=== PATIENT | male | born 1995 | race Caucasian/White ===

== ENCOUNTER 2019-07-23 20:09 | Emergency (ER) | payer OTHER ==
[~2019-07-23] VITALS: Ht 188 cm; Wt 113.4 kg
--- NOTE | 2019-07-23 20:13 | ED.ADGEN ---
Past History Past Medical History: Bipolar, Hypothyroid Past Surgical History: Tonsillectomy Alcohol Use: None Drug Use: Amphetamine Adult General Chief Complaint Chief Complaint ".. I ve been hurting since saturday.. I even took some MOM.... my doctor sent me in to get a CT.. and I guess it says I have a appendicitis...".. " Really need to take a trip to [place].. 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 Patient reports generalized abdomen pain some localization to Rt. lower quadrant. CT which was ordered by his primary Carrie Cisneros NP-C shows an Appendix that is mildly dilated with adjacent fat stranding. Patient last ate approximately 1400 hrs. No history of trauma. No history of travel. No specific ill contacts. Reports normal stools today. No history bad food intake. Review of Systems Review of Systems Constitutional: Denies fever or chills [] Eyes: Denies change in visual acuity, redness, or eye pain [] HENT: Denies nasal congestion or sore throat [] Respiratory: Denies cough or shortness of breath [] Cardiovascular: No additional information not addressed in HPI [] GI:Complaints of abdominal pain, nausea,. Denies vomiting, bloody stools or diarrhea [] : Denies dysuria or hematuria [] Musculoskeletal: Denies back pain or joint pain [] Integument: Denies rash or skin lesions [] Neurologic: Denies headache, focal weakness or sensory changes [] Endocrine: Denies polyuria or polydipsia [] All other systems were reviewed and found to be within normal limits, except as documented in this note. Family History Family History Non-contributory Current Medications Current Medications Current Medications Medications (Trade) Dose Ordered Sig/Aubrie Start Time Stop Time Status Last Admin Dose Admin Ceftriaxone Sodium 1 gm/ Sodium Chloride 50 ml @ 100 mls/hr 1X ONCE 07/23/19 20:15 07/23/19 20:44 DC 07/23/19 20:55 100 MLS/HR Ceftriaxone Sodium (Rocephin) 1 gm STK-MED ONCE 07/23/19 20:44 07/23/19 20:45 DC Famotidine (Pepcid Vial) 20 mg 1X ONCE 07/23/19 20:45 07/23/19 20:46 DC 07/23/19 20:50 20 MG Lactated Ringer's 1,000 ml @ 1,000 mls/hr Q1H 07/23/19 20:14 07/23/19 21:13 DC 07/23/19 20:48 1,000 MLS/HR Metronidazole 100 ml @ 100 mls/hr 1X ONCE 07/23/19 20:15 07/23/19 21:14 DC 07/23/19 21:16 100 MLS/HR Ondansetron HCl (Zofran) 8 mg 1X ONCE 07/23/19 20:45 07/23/19 20:46 DC 07/23/19 20:53 8 MG Sodium Chloride 50 ml @ As Directed STK-MED ONCE 07/23/19 20:44 07/23/19 20:45 DC See Nursing for home meds Allergies Allergies Allergies Coded Allergies Type Severity Reaction Last Updated Verified No Known Drug Allergies 07/24/16 No Physical Exam Physical Exam Constitutional: Well developed, well nourished, Moderated acute distress, non- toxic appearance. [] HENT: Normocephalic, atraumatic, bilateral external ears normal, oropharynx moist, no oral exudates, nose normal. []Ear studs. Eyes: PERRLA, EOMI, conjunctiva normal, no discharge. Eye glasses. Neck: Normal range of motion, no tenderness, supple, no stridor. [] Cardiovascular:Heart rate regular rhythm, no murmur [] Lungs & Thorax: Bilateral breath sounds equal at apexes on auscultation [] Abdomen: Bowel sounds normal, soft, Rt. lower tenderness, no masses, no pulsatile masses. [] Mild rebound to Rt. lower quadrant. Skin: Warm, dry, no erythema, no rash. [] Back: No tenderness, no CVA tenderness. [] Extremities: No tenderness, no cyanosis, no clubbing, ROM intact, no edema. []Mild psoas on Rt. Neurologic: Alert and oriented X 3, normal motor function, normal sensory function, no focal deficits noted. [] Psychologic: Affect anxious, judgement normal, mood normal. [] Current Patient Data Vital Signs Vital Signs Date Time Temp Pulse Resp B/P (MAP) Pulse Ox O2 Delivery O2 Flow Rate FiO2 07/23/19 22:01 81 20 126/74 (91) 96 Room Air 07/23/19 20:15 98.6 Lab Results Laboratory Tests Test 07/23/19 20:30 07/23/19 20:37 White Blood Count 9.1 x10^3/uL (4.0-11.0) Red Blood Count 5.34 x10^6/uL (4.30-5.70) Hemoglobin 15.3 g/dL (13.0-17.5) Hematocrit 45.7 % (39.0-53.0) Mean Corpuscular Volume 86 fL (79-100) Mean Corpuscular Hemoglobin 29 pg (25-35) Mean Corpuscular Hemoglobin Concent 34 g/dL (31-37) Red Cell Distribution Width 13.0 % (11.5-14.5) Platelet Count 296 x10^3/uL (140-400) Neutrophils (%) (Auto) 52 % (31-73) Lymphocytes (%) (Auto) 35 % (24-48) Monocytes (%) (Auto) 9 % (0-9) Eosinophils (%) (Auto) 4 % (0-3) H Basophils (%) (Auto) 1 % (0-3) Neutrophils # (Auto) 4.7 x10^3uL (1.8-7.7) Lymphocytes # (Auto) 3.2 x10^3/uL (1.0-4.8) Monocytes # (Auto) 0.8 x10^3/uL (0.0-1.1) Eosinophils # (Auto) 0.3 x10^3/uL (0.0-0.7) Basophils # (Auto) 0.1 x10^3/uL (0.0-0.2) Prothrombin Time 9.9 SEC (9.4-11.4) Prothrombin Time INR 1.0 (0.9-1.1) Activated Partial Thromboplast Time 29 SEC (23-33) Sodium Level 138 mmol/L (136-145) Potassium Level 4.0 mmol/L (3.5-5.1) Chloride Level 100 mmol/L (98-107) Carbon Dioxide Level 28 mmol/L (21-32) Anion Gap 10 (6-14) Blood Urea Nitrogen 11 mg/dL (8-26) Creatinine 1.1 mg/dL (0.7-1.3) Estimated GFR (Cockcroft-Gault) 80.9 Glucose Level 99 mg/dL (70-99) Calcium Level 9.1 mg/dL (8.5-10.1) Total Bilirubin 0.3 mg/dL (0.2-1.0) Direct Bilirubin 0.1 mg/dL (0.0-0.2) Aspartate Amino Transferase (AST) 30 U/L (15-37) Alanine Aminotransferase (ALT) 75 U/L (16-63) H Alkaline Phosphatase 76 U/L (46-116) Total Protein 7.8 g/dL (6.4-8.2) Albumin 4.0 g/dL (3.4-5.0) Lipase 111 U/L (73-393) Urine Collection Type Unknown Urine Color Straw Urine Clarity Clear Urine pH 6.0 Urine Specific Duchesne <=1.005 Urine Protein Neg (NEG-TRACE) Urine Glucose (UA) Neg mg/dL (NEG) Urine Ketones (Stick) Neg mg/dL (NEG) Urine Blood Neg (NEG) Urine Nitrite Neg (NEG) Urine Bilirubin Neg (NEG) Urine Urobilinogen Dipstick 0.2 mg/dL (0.2 mg/dL) Urine Leukocyte Esterase Neg (NEG) Urine RBC Occ /HPF (0-2) Urine WBC Occ /HPF (0-4) Urine Squamous Epithelial Cells Occ /LPF Urine Bacteria 0 /HPF (0-FEW) Urine Opiates Screen Neg (NEG) Urine Methadone Screen Neg (NEG) Urine Barbiturates Neg (NEG) Urine Phencyclidine Screen Neg (NEG) Urine Amphetamine/Methamphetamine Neg (NEG) Urine Benzodiazepines Screen Neg (NEG) Urine Cocaine Screen Neg (NEG) Urine Cannabinoids Screen Neg (NEG) Urine Ethyl Alcohol Neg (NEG) EKG EKG [] Radiology/Procedures Radiology/Procedures CT = Dilated Appendix, min. fat stranding.[] Course & Med Decision Making Course & Med Decision Making Pertinent Labs and Imaging studies reviewed. (See chart for details) Discussed presentation, testing and tx plan with Dr. Bob will accept pt in transfer to [facility]. Dr. Santana contacted will consult on pt. [] Final Impression Final Impression 1. Abdomen Pain 2. Earlier Appendicitis[] Dragon Disclaimer Dragon Disclaimer This electronic medical record was generated, in whole or in part, using a voice recognition dictation system. Dragon Disclaimer This chart was dictated in whole or in part using Voice Recognition software in a busy, high-work load, and often noisy Emergency Department environment. It may contain unintended and wholly unrecognized errors or omissions. JESSIE AGUILAR MD Jul 23, 2019 20:13
[2019-07-23] MEDS ORDERED: IV RINGERS SOLUTION,LACTATED 1,000 ML IV SCH (20:14)
[2019-07-23] MEDS ORDERED: cefTRIAXone SODIUM 1 GM VIAL ONE (20:44)
[2019-07-23] MEDS ORDERED: IV NORMAL SALINE 50ML 50 ML ONE (20:44)
[2019-07-23] MEDS ORDERED: ONDANSETRON PF 4 MG/2 ML VIAL. IVP ONE (20:45)
[2019-07-23] MEDS ORDERED: FAMOTIDINE 20 MG/2 ML VIAL IVP ONE (20:45)
[2019-07-23 20:46] LABS: BASO # 0.1 x10^3/uL (0.0-0.2); BASO % 1 % (0-3); EOS # 0.3 x10^3/uL (0.0-0.7); EOS % 4 % (0-3); HEMATOCRIT 45.7 % (39.0-53.0); HEMOGLOBIN 15.3 g/dL (13.0-17.5); LYMPH # 3.2 x10^3/uL (1.0-4.8); LYMPH % 35 % (24-48); MEAN CORPUSCULAR HEMOGLOBIN 29 pg (25-35); MEAN CORPUSCULAR HGB CONC 34 g/dL (31-37); MEAN CORPUSCULAR VOLUME 86 fL (79-100); MONO # 0.8 x10^3/uL (0.0-1.1); MONO % 9 % (0-9); NEUT # 4.7 x10^3uL (1.8-7.7); NEUT % 52 % (31-73); PLATELET COUNT 296 x10^3/uL (140-400); RED BLOOD COUNT 5.34 x10^6/uL (4.30-5.70); WHITE BLOOD COUNT 9.1 x10^3/uL (4.0-11.0)
[2019-07-23 20:56] LABS: CALCIUM 9.1 mg/dL (8.5-10.1); CREATININE 1.1 mg/dL (0.7-1.3); DIRECT BILIRUBIN 0.1 mg/dL (0.0-0.2); GFR 80.9; TOTAL BILIRUBIN 0.3 mg/dL (0.2-1.0); TOTAL PROTEIN 7.8 g/dL (6.4-8.2)
[2019-07-23 21:04] LABS: AMPHETAMINE/METHAMPHETAMINE NEG (NEG); BARBITURATES NEG (NEG); BENZODIAZEPINES NEG (NEG); CANNABINOIDS NEG (NEG); COCAINE NEG (NEG); METHADONE NEG (NEG); OPIATES NEG (NEG); PHENCYCLIDINE NEG (NEG)
[2019-07-23 21:09] LABS: BACTERIA,URINE 0 /HPF (0-FEW); BILIRUBIN,URINE NEG (NEG); CLARITY,URINE CLEAR; COLOR,URINE STRAW; GLUCOSE,URINE NEG (NEG); NITRITE,URINE NEG (NEG); RBC,URINE OCC /HPF (0-2); SQUAMOUS EPITHELIAL CELL,UR OCC /LPF; UROBILINOGEN,URINE 0.2 mg/dL (0.2 mg/dL); WBC,URINE OCC /HPF (0-4)
[2019-07-23 22:01] VITALS: BP 126/74
== END 2019-07-23 22:30 | disposition short-term general hospital (02) ==
LOC: ER 20:09
DX: K36 Other appendicitis (principal); E03.9 Hypothyroidism, unspecified; F15.10 Other stimulant abuse, uncomplicated
CPT/HCPCS: 36415; 80048; 80076; 80307; 81001; 83690; 85025; 85610; 85730; 96365; 96367; 96375; 99285; J0696; J2405; J3490; J7120

== ENCOUNTER → 2019-07-23 | Outpatient (CLI) | payer OTHER ==
[2016-07-24 18:22] VITALS: BP 127/85
[~2019-07-23] MED LIST: IOHEXOL 240 MG/ML 50ML VIAL. ONE; IOHEXOL 300 MG/ML 75 ML VIAL. IV ONE
--- NOTE | 2019-07-23 20:02 | RAD ---
Exam: CT abdomen and pelvis with contrast INDICATION: Abdominal pain TECHNIQUE: Sequential axial images through the abdomen and pelvis obtained following the administration of 75 mL of Omni 300 IV contrast. Sagittal and coronal reformatted images were reconstructed from the axial data and reviewed. Comparisons: None FINDINGS: Heart size is normal. No pericardial effusion. Visualized lung bases are clear. No pleural effusion. There is diffuse hepatic steatosis. Spleen, pancreas, gallbladder and adrenals are unremarkable. No perinephric inflammation or hydronephrosis. Several 2 to 3 mm nonobstructing renal calculi are noted within the right kidney. No ureteral calculi. Bladder is decompressed not well evaluated. Prostate is not enlarged. Mild stranding noted within the mesenteric fat of the right hemiabdomen. There is mild dilatation of the appendix measuring up to 9 mm. Remainder of the large and small bowel are unremarkable. No obstruction. No free intra-abdominal air or fluid. Abdominal aorta has normal course and caliber. Abdominal vasculature is patent. No enlarged intra-abdominal lymph nodes are identified. No suspicious osseous lesions or acute fractures. IMPRESSION: 1. Appendix is mildly dilated with minimal adjacent fat stranding. Findings could relate to an early appendicitis. 2. No obstruction. 3. Nonobstructing right renal calculi. No evidence for obstructive uropathy. 4. Hepatic steatosis. Exposure: One or more of the following in the visualized dose reduction techniques were utilized for this examination: 1. Automated exposure control 2. Adjustment of the MA and/or KV according to patient size 3. Use of iterative of reconstructive technique Electronically signed by: Rick Mills MD (07/23/2019 7:59 PM) [facility]
== END | disposition home or self-care (01) ==
LOC: RAD 17:56
PROVIDERS: ATTEND Registered Nurse
DX: K76.0 Fatty (change of) liver, not elsewhere classified (principal); K59.00 Constipation, unspecified
CPT/HCPCS: 74177; Q9967

== ENCOUNTER → 2019-07-29 | Outpatient (CLI) | payer OTHER ==
[2019-07-23 22:01] VITALS: BP 126/74
--- NOTE | 2019-07-29 16:23 | RAD ---
EXAM: Thyroid ultrasound HISTORY: Thyroid enlargement. COMPARISON: None. FINDINGS: Sonographic evaluation of the thyroid gland was performed. The right lobe measures 5.5 x 2.7 x 2.1 cm. The parenchyma diffusely heterogeneous and hypoechoic without focal lesions. The left lobe measures 5.7 x 2.4 x 1.6 cm. The parenchyma is diffusely heterogeneous and hypoechoic. There is a hyperechoic nodule at the lower pole measures 1.6 x 0.9 x 1.6 cm. The isthmus measures 6 mm. IMPRESSION: 1. Diffusely heterogeneous and hypoechoic thyroid gland consistent with prior thyroiditis. 2. A 1.6 cm hyperechoic nodule at the left lower pole is likely benign. BI-RADS Category 3. Follow-up is suggested at this size. Electronically signed by: Alfie West MD (07/29/2019 4:20 PM) [facility]
== END | disposition home or self-care (01) ==
LOC: US 12:43
PROVIDERS: ATTEND Registered Nurse
DX: E04.1 Nontoxic single thyroid nodule (principal)
CPT/HCPCS: 76536

== ENCOUNTER 2020-10-27 06:51 | Emergency (ER) | payer BC, OTHER ==
[~2020-10-27] VITALS: Ht 190.5 cm; Wt 109.0 kg
[2020-10-27 07:10] VITALS: BP 133/94
[2020-10-27] MEDS ORDERED: NEOM10DR32 LEFT EAR (07:46)
--- NOTE | 2020-10-27 07:47 | PHYS DOC ---
Past History Past Medical History: Bipolar, Hypothyroid Past Surgical History: Tonsillectomy Alcohol Use: Heavy Drug Use: None General Adult EDM: Chief Complaint: EARACHE/EAR PAIN HPI: HPI: Patient is a 25 year old male that presents to the ED for sudden hearing loss at 2030 last night. Patient states after he got out of the shower last night, he did a "superficial" "q-tipping" and developed a soon loss of hearing in the left ear, associated with a prior "pop" sensation. The patient states he was diagnosed with an ear infection 1 month ago and was given a 4 day prescription of prednisone and a prescription for amoxicillin. The patient states he did not take the antibiotic until 1.5 weeks ago, and still has 2 days left of the prescription. Patient states the ear feels numb and he can not ear anything out of the ear. He states that he developed ringing in left hear around 0700 this morning. He also reports dizziness and feeling off balance when he walks. He st ates he feels like he is falling to the left. He also has pain with movement of the external ear, but no pain at rest. This has never happened before. Patient denies drainage from the ear, sinus pressure, or headache. Patient has no other symptoms or complaints at this time. Review of Systems: Review of Systems: Constitutional: Denies fever or chills Eyes: Denies redness or eye pain HENT: Denies nasal congestion or sore throat. Loss of hearing in left ear, with associated ringing in the ear. Respiratory: Denies cough or shortness of breath Cardiovascular: Denies chest pain or palpitations GI: Denies abdominal pain, nausea, or vomiting : Denies dysuria or hematuria Musculoskeletal: Denies back pain or joint pain Integument: Denies rash or skin lesions Neurologic: Denies headache, focal weakness or sensory changes. Positive for dizziness, with some equilibrium problems to falling to the left. Complete systems were reviewed and found to be within normal limits, except as d ocumented in this note. Allergies: Allergies: Allergies Coded Allergies Type Severity Reaction Last Updated Verified No Known Drug Allergies 07/24/16 No Physical Exam: PE: Constitutional: Well developed, well nourished, no acute distress, non-toxic appearance HENT: Normocephalic, atraumatic. Right ear no erythema and TM without bulging. Left external canal has erythema, with cerumen impeding proper view of the left TM. Eyes: PERRL, EOMI, conjunctiva normal, no discharge Neck: Normal range of motion, no tenderness, supple Lungs & Thorax: No respiratory distress, equal chest rise and fall Abdomen: Soft, no tenderness Skin: Warm, dry, no erythema, no rash Back: No tenderness, no CVA tenderness Extremities: No tenderness, ROM intact, no edema Neurologic: Alert and oriented X 3, normal motor function, normal sensory function, no focal deficits noted Psychologic: Affect normal, judgment normal EKG: EKG: [] Radiology/Procedures: Radiology/Procedures: [] Course & Med Decision Making: Course & Med Decision Making Pertinent Labs and Imaging studies reviewed. (See chart for details) Patient is 25 year old male presented to ED for hearing loss. History and physical exam suggests otitis externa. Plan for symptomatic treatment with antibiotic prescription for ear drops. Will provide name of ENT for follow-up. Patient stable for discharge with outpatient follow-up with PCP. Discussed findings and plan with patient, who acknowledges understanding and agreement. Dragon Disclaimer: Dragon Disclaimer: This electronic medical record was generated, in whole or in part, using a voice recognition dictation system. Departure Departure: Impression: Primary Impression: Otitis externa Qualified Codes: H60.502 - Unspecified acute noninfective otitis externa, left ear Additional Impression: Tinnitus Qualified Codes: H93.12 - Tinnitus, left ear Disposition: 01 DC HOME SELF CARE/HOMELESS Condition: STABLE Referrals: [facility] [employer] (PCP) Patient Instructions: Otitis Externa, Tinnitus Additional Instructions: Please call Dr. Maegan Nice, ENT [phone] for an appointment. Scripts Neomycin/Polymyxin B Sulf/Hc ([id number] EAR SUSP) 10 Ml Drops.susp 4 DROP LEFT EAR TID for otitis bias binding folder, poss TM rupt for 7 Days, #10 ML Prov: DYANA CROCKETT DO 10/27/20 DYANA CROCKETT DO Oct 27, 2020 07:47
[2020-10-27] MEDS ORDERED: DEXAMETHASONE 4 MG TABLET PO ONE (08:00)
== END 2020-10-27 08:00 | disposition home or self-care (01) ==
LOC: ER 06:51
DX: H60.502 Unspecified acute noninfective otitis externa, left ear (principal); H93.12 Tinnitus, left ear; H91.92 Unspecified hearing loss, left ear; F31.9 Bipolar disorder, unspecified; E03.9 Hypothyroidism, unspecified; F10.20 Alcohol dependence, uncomplicated; Y90.9 Presence of alcohol in blood, level not specified
CPT/HCPCS: 99283; J8540

== ENCOUNTER 2021-03-20 13:31 | Emergency (ER) | payer BC ==
[~2021-03-20] VITALS: Ht 188 cm; Wt 113.0 kg
[~2021-03-20 13:31] MED LIST changes: -IOHEXOL 240 MG/ML 50ML VIAL. ONE; -IOHEXOL 300 MG/ML 75 ML VIAL. IV ONE; +NEOM10DR32 LEFT EAR
[2021-03-20 13:32] VITALS: BP 111/69
[2021-03-20] MEDS ORDERED: ACETAMINOPHEN 500 MG TABLET PO ONE (14:15)
[2021-03-20] MEDS ORDERED: ORPHENADRINE CITRATE 60 MG/2 ML VIAL. IM ONE (14:15)
[2021-03-20] MEDS ORDERED: KETOROLAC 60 MG/2 ML VIAL. IM ONE (14:15)
[2021-03-20] MEDS ORDERED: CYCL5TAB PO (14:17)
[2021-03-20] MEDS ORDERED: IBUP800T19 PO (14:17)
--- NOTE | 2021-03-20 14:17 | PHYS DOC ---
Past History Past Medical History: Bipolar, Hypothyroid, Other Additional Past Medical Histor: ADHD Past Surgical History: Tonsillectomy, Other Additional Past Surgical Histo: THYROIDECTOMY Smoking: Non-smoker Alcohol Use: Rarely Drug Use: None Adult General Chief Complaint Chief Complaint: BACK PAIN - NO INJURY [facility] HPI Patient is a 25-year-old healthy male who presents for back pain. Onset was this morning shortly after waking up. No known trauma or mechanism of injury, states he woke up with sore lower back and reports tightening with radiation up his posterior spine and down his posterior legs. Keeping moving makes better, staying still for prolonged amounts of time make worse. Pain is dull and constant but exacerbates with certain movements. Timing of symptoms has waxed and waned since onset. Denies any known medical issues, takes no medications on a daily basis. No red flag signs or symptoms of back pain such as fever, chronic steroid use, mechanism of injury, weight loss, history of IV drug use, bladder or bowel incontinence, changes in motor or sensory or neuro function etc. Review of Systems Review of Systems Fourteen body systems of review of systems have been reviewed. See HPI for pertinent positives and negative responses, other cordova all other systems are negative, non-pertinent or non-contributory Allergies Allergies Allergies Coded Allergies Type Severity Reaction Last Updated Verified No Known Drug Allergies 07/24/16 No Physical Exam Physical Exam Constitutional: Pt is oriented to person, place, and time. Pt appears well-developed and well- nourished. Anxious HEENT: Head: Normocephalic and atraumatic. External ears unremarkable, negative marroquin sign Conjunctivae and EOM are normal. Pupils are equal, round, and reactive to light. Oropharynx is clear and moist. No hematomas or lacerations or abrasions to face or scalp OP clear, no blood, no malocclusion, dentition intact Nares clear, no nasal septal hematoma Midface stable Neck: C-spine midline nontender, no step-offs Cardiovascular: Normal rate, regular rhythm and normal heart sounds. Pulmonary/Chest: Effort normal and breath sounds normal. No respiratory distress. No wheezes. CTA bilaterally Abdominal: Soft. Bowel sounds are normal. Pt exhibits no distension. There is no tenderness. Musculoskeletal: No bony tenderness to extremities, no deformities, full ROM extremities Chest wall stable Pelvis stable and non-tender No vertebral TTP and spine without stepoffs. Patient has tenderness to apex of sacrum bilaterally. Also has spasming bilateral paralumbar muscles that are tender to palpation and exacerbating presenting symptoms Straight leg raise bilaterally negative Neurological: Pt is alert and oriented to person, place, and time. Moving all extremities willfully, able to wiggle all fingers and toes Alert and oriented x 3 Motor and sensory function intact 2+ bilateral patellar reflexes No saddle anesthesia Skin: Skin is warm and dry. No abrasions, no lacerations Psychiatric: Anxious affect and mood Current Patient Data Vital Signs Vital Signs Date Time Temp Pulse Resp B/P (MAP) Pulse Ox O2 Delivery O2 Flow Rate FiO2 03/20/21 13:32 97.8 109 18 111/69 (83) 96 Room Air Vital Signs Date Time Temp Pulse Resp B/P (MAP) Pulse Ox O2 Delivery O2 Flow Rate FiO2 03/20/21 14:40 90 18 97 Room Air 03/20/21 13:32 97.8 111/69 (83) EKG EKG [] Radiology/Procedures Radiology/Procedures [] Heart Score C/O Chest Pain: No Risk Factors: Risk Factors: DM, Current or recent (<one month) smoker, HTN, HLP, family history of CAD, obesity. Risk Scores: Risk Factors: DM, Current or recent (<one month) smoker, HTN, HLP, family history of CAD, obesity. Course & Med Decision Making Course & Med Decision Making ABCs unremarkable. I disclosed entirety of ER findings and discussed most likely diagnosis of likely self-limiting back pain, probably musculoskeletal in nature from a sprain/sprain/spasm of paraspinal muscles. I disclosed in absence of red flag signs or symptoms of the back pain, imaging should be deferred. Patient managed with IM Toradol and antispasmodic which improved his symptoms. Continued supportive care practices such as muscle relaxers, NSAIDs and/or Tylenol for pain relief, back stretches and outpatient follow-up to review ER visit today advised. Strict return precautions were also discussed at length with good understanding by patient. Patient voiced understanding and agreement with the plan. Patient knows to come back for repeat evaluation if concerning signs or symptoms present prior to outpatient follow-up. Hemodynamically stable, ambulatory and well-appearing at time of disposition. Dragon Disclaimer Dragon Disclaimer This electronic medical record was generated, in whole or in part, using a voice recognition dictation system. Departure Departure: Impression: Primary Impression: Lower back pain Disposition: HOME / SELF CARE / HOMELESS Condition: IMPROVED Referrals: [facility] [employer] (PCP) Patient Instructions: Back Exercises, Back Pain, Adult Additional Instructions: You were evaluated in the Emergency Department today for back pain. Your evaluation suggests no acute abnormalities which require further intervention at this time. Your pain is most likely due to to a musculoskeletal cause that should improve with supportive care. - Move around as tolerated but avoiding heavy lifting. ``Bed rest is not r ecommended nor is it the best treatment for low back pain. - Medications will help control your discomfort: - -Ibuprofen (800 mg every 8 hours for pain) with food. - -Tylenol - Do not drink alcohol, drive a car, operate machinery, or get up on ladders or heights when taking any prescribed pain medications. - Do not drive home if you received prescribed pain medications here in the ED. Return to the ED immediately if you develop any of the following problems: - Leaking urine or difficulty urinating; - Inability to control your bowels; - New numbness or weakness in your legs or numbness between your legs; - Inability to walk - Fever Scripts Ibuprofen (IBUPROFEN) 800 Mg Tablet 1 TAB PO TID for BACK PAIN for 7 Days, #21 TAB Prov: ROSALIO AMADOR DO 03/20/21 Cyclobenzaprine Hcl (CYCLOBENZAPRINE HCL) 5 Mg Tablet 1 TAB PO TID for BACK SPASMS for 5 Days, #15 TAB Prov: ROSALIO AMADOR DO 03/20/21 ROSALIO AMADOR DO Mar 20, 2021 14:17
== END 2021-03-20 15:00 | disposition home or self-care (01) ==
LOC: ER 13:31
DX: M54.5 Low back pain (principal)
CPT/HCPCS: 96372; 99284; J1885; J2360

== ENCOUNTER → 2021-03-30 | Outpatient (CLI) | payer BC ==
[2021-03-20 13:32] VITALS: BP 111/69
[~2021-03-30] MED LIST changes: +CYCL5TAB PO; +IBUP800T19 PO
--- NOTE | 2021-03-30 15:22 | RAD ---
US TESTICULAR History: Reason: LT TESTICULAR PAIN / Spl. Instructions: / History: Comparison: None. Technique: Multiple grayscale, color flow Doppler and Doppler spectral analysis images of the scrotum are obtained. Findings: Degraded evaluation due to technical factors. Right testicle measures 5.2 x 2.6 x 2.0 cm. Degraded evaluation of the parenchyma due to technique. Right epididymis is unremarkable. Left testicle measures 5.1 x 2.7 x 2.0 cm. Degraded evaluation of the parenchyma due to technique. L eft epididymis is unremarkable. There is no hydrocele or varicocele. No scrotal hyperemia or swelling. Doppler imaging demonstrates normal flow to both testicles, without evidence of torsion. IMPRESSION: 1. Degraded evaluation. No acute testicular pathology. Electronically signed by: Malachi Vieyra DO (03/30/2021 3:19 PM) [id number]
== END ==
LOC: US 07:53
PROVIDERS: ATTEND Registered Nurse
DX: N50.812 Left testicular pain (principal)
CPT/HCPCS: 76870

== ENCOUNTER 2021-08-27 12:12 | Emergency (ER) | payer BC ==
[~2021-08-27] VITALS: Ht 188 cm; Wt 113.0 kg
[2021-08-27 12:22] VITALS: BP 115/78
--- NOTE | 2021-08-27 12:38 | PHYS DOC ---
Past History Past Medical History: Bipolar, Hypothyroid, Other Additional Past Medical Histor: ADHD Past Surgical History: Appendectomy, Tonsillectomy, Other Additional Past Surgical Histo: THYROIDECTOMY Smoking: Non-smoker Alcohol Use: Occasionally Drug Use: None General Adult EDM: Chief Complaint: ABDOMINAL PAIN HPI: HPI: Patient is a 26-year-old male that presents today with epigastric pain x7 days. Patient states the pain started Saturday or Saturday last week and is progressively gotten worse over the week the last 2 days he has been unable to take food only been able to keep liquids down, he states yesterday and today he has had to physically vomit because he feels that that will help relieve the pain. Patient denies shortness of air or chest pain, patient states he did communicate with his primary care physician who advised him to come to the emergency department Review of Systems: Review of Systems: Constitutional: Denies fever or chills Eyes: Denies change in visual acuity HENT: Denies nasal congestion or sore throat Respiratory: Denies cough or shortness of breath Cardiovascular: Denies chest pain or edema GI: Abdominal pain, nausea, vomiting : Denies dysuria Musculoskeletal: Denies back pain or joint pain Integument: Denies rash Neurologic: Denies headache, focal weakness or sensory changes Endocrine: Denies polyuria or polydipsia Lymphatic: Denies swollen glands Psychiatric: Denies depression or anxiety Allergies: Allergies: Allergies Coded Allergies Type Severity Reaction Last Updated Verified No Known Drug Allergies 07/24/16 No Physical Exam: PE: Constitutional: Well developed, well nourished, mild distress, non-toxic appearance. [] HENT: Normocephalic, atraumatic, bilateral external ears normal, oropharynx moist, no oral exudates, nose normal. [] Eyes: PERRLA, EOMI, conjunctiva normal, no discharge. [] Neck: Normal range of motion, no tenderness, supple, no stridor. [] Cardiovascular:Heart rate regular rhythm, no murmur [] Lungs & Thorax: Bilateral breath sounds clear to auscultation [] Abdomen: Bowel sounds normal, soft, no masses, no pulsatile masses, pain over epigastric area [] Skin: Warm, dry, no erythema, no rash. [] Back: No tenderness, no CVA tenderness. [] Extremities: No tenderness, no cyanosis, no clubbing, ROM intact, no edema. [] Neurologic: Alert and oriented X 3, normal motor function, normal sensory function, no focal deficits noted. [] Psychologic: Affect normal, judgement normal, mood normal. [] Current Patient Data: Labs: Laboratory Tests Test 08/27/21 12:43 08/27/21 14:18 White Blood Count 7.6 x10^3/uL Red Blood Count 5.50 x10^6/uL Hemoglobin 15.3 g/dL Hematocrit 45.6 % Mean Corpuscular Volume 83 fL Mean Corpuscular Hemoglobin 28 pg Mean Corpuscular Hemoglobin Concent 34 g/dL Red Cell Distribution Width 13.8 % Platelet Count 321 x10^3/uL Neutrophils (%) (Auto) 55 % Lymphocytes (%) (Auto) 32 % Monocytes (%) (Auto) 10 % Eosinophils (%) (Auto) 3 % Basophils (%) (Auto) 1 % Neutrophils # (Auto) 4.2 x10^3uL Lymphocytes # (Auto) 2.4 x10^3/uL Monocytes # (Auto) 0.7 x10^3/uL Eosinophils # (Auto) 0.3 x10^3/uL Basophils # (Auto) 0.0 x10^3/uL Sodium Level 138 mmol/L Potassium Level 4.1 mmol/L Chloride Level 102 mmol/L Carbon Dioxide Level 27 mmol/L Anion Gap 9 Blood Urea Nitrogen 15 mg/dL Creatinine 1.1 mg/dL Estimated GFR (Cockcroft-Gault) 79.7 BUN/Creatinine Ratio 14 Glucose Level 88 mg/dL Calcium Level 9.4 mg/dL Total Bilirubin 0.9 mg/dL Aspartate Amino Transf (AST/SGOT) 16 U/L Alanine Aminotransferase (ALT/SGPT) 31 U/L Alkaline Phosphatase 79 U/L Total Protein 7.5 g/dL Albumin 4.3 g/dL Albumin/Globulin Ratio 1.3 Lipase 98 U/L Urine Collection Type Clean catch Urine Color Yellow Urine Clarity Clear Urine pH 6.0 Urine Specific Malcolm 1.010 Urine Protein Neg Urine Glucose (UA) Neg mg/dL Urine Ketones (Stick) Neg mg/dL Urine Blood Neg Urine Nitrite Neg Urine Bilirubin Neg Urine Urobilinogen Dipstick 0.2 mg/dL Urine Leukocyte Esterase Neg Urine RBC 0 /HPF Urine WBC 0 /HPF Urine Bacteria 0 /HPF Current Medications Medications (Trade) Dose Ordered Sig/Aubrie Route PRN Reason Start Time Stop Time Status Last Admin Dose Admin Sodium Chloride 1,000 ml @ 1,000 mls/hr 1X ONCE IV 08/27/21 12:45 08/27/21 13:44 DC 08/27/21 12:54 Fentanyl Citrate (Fentanyl 2ml Vial) 50 mcg 1X ONCE IVP 08/27/21 12:45 08/27/21 12:46 DC 08/27/21 12:55 Ondansetron HCl (Zofran) 4 mg 1X ONCE IVP 08/27/21 12:45 08/27/21 12:46 DC 08/27/21 12:55 Iohexol (Omnipaque 300 Mg/ml) 75 ml 1X ONCE IV 08/27/21 12:45 08/27/21 12:46 DC 08/27/21 12:52 Info (Do NOT chart on this entry -- for MONITORING) 1 each PRN DAILY PRN MC SEE COMMENTS 08/27/21 12:45 08/27/21 15:15 DC Multi-Ingredient Mouthwash/Gargle (Gi Cocktail) 20 ml 1X ONCE PO 08/27/21 14:00 08/27/21 14:01 DC 08/27/21 14:00 Vital Signs: Vital Signs Date Time Temp Pulse Resp B/P (MAP) Pulse Ox O2 Delivery O2 Flow Rate FiO2 08/27/21 12:22 98.7 88 18 115/78 (90) 98 Room Air Vital Signs Date Time Temp Pulse Resp B/P (MAP) Pulse Ox O2 Delivery O2 Flow Rate FiO2 08/27/21 12:22 98.7 88 18 115/78 (90) 98 Room Air EKG: EKG: [] Radiology/Procedures: Radiology/Procedures: REASON: epigastric pain, right upper quadrant tenderness Omni 300 75cc PROCEDURE: CT ABD PELV W/ IV CONTRST ONLY Examination: CT of the abdomen pelvis with IV contrast HISTORY: History of epigastric pain COMPARISON: 10 31 cm TECHNIQUE: Axial CT images of the abdomen and pelvis was performed with IV contrast. Coronal and sagittal reformats were performed. Exposure: One or more of the following individualized dose reduction techniques were utilized for this examination: 1. Automated exposure control 2. Adjustment of the mA and/or kV according to patient size 3. Use of iterative re construction technique FINDINGS: The bibasilar lungs are clear. No evidence of free air identified in the abdomen The liver, spleen, adrenals grossly appears unremarkable. The gallbladder is mildly distended. The stomach is mildly distended with visualized pancreas grossly appears unremarkable The small bowel is nondilated. There is mild thickened appearance of the wall of the transverse colon and sigmoid colon with minimal surrounding fat stranding. Feces and gas throughout the colon. Urinary bladder is mildly distended Bilateral kidneys enhance symmetrically. Punctate 2 mm calculus right kidney. No evidence of lytic bony destructive lesion. IMPRESSION: 1. Mild thickened appearance of the wall of the transverse colon, descending colon and sigmoid colon with minimal surrounding fat stranding likely mild colitis. 2. Punctate 2 mm calculus right kidney. Electronically signed by: Alexander Shah MD (08/27/2021 1:13 PM) [id number] [] Heart Score: C/O Chest Pain: N/A Risk Factors: Risk Factors: DM, Current or recent (<one month) smoker, HTN, HLP, family history of CAD, obesity. Risk Scores: Score 0 - 3: 2.5% MACE over next 6 weeks - Discharge Home Score 4 - 6: 20.3% MACE over next 6 weeks - Admit for Clinical Observation Score 7 - 10: 72.7% MACE over next 6 weeks - Early Invasive Strategies Course & Med Decision Making: Course & Med Decision Making Pertinent Labs and Imaging studies reviewed. (See chart for details) 1420 reassessment of patient shows a patient states pain is better nausea is better taste and states she just feels tired, will send patient home with instructions to follow a clear liquid diet over the next 12 to 24 hours, then advance as tolerated using the brat diet as a bridge between a regular diet. Patient verbalizes understanding of this, we will also order Pepcid 20 mg twice daily for the next 2 weeks, have patient follow-up with his primary care physician this week for further management of GI symptoms if symptoms continue. Patient verbalizes understanding and is agreeable to the plan of care Leyda Disclaimer: Leyda Disclaimer: This electronic medical record was generated, in whole or in part, using a voice recognition dictation system. Departure Departure: Impression: Primary Impression: Epigastric abdominal pain Disposition: HOME / SELF CARE / HOMELESS Condition: STABLE Referrals: MARYCRUZ HOBSON NP-C (PCP) DYANA AMARAL MD Patient Instructions: Abdominal Pain, Diet for Gastroesophageal Reflux Disease, Adult Additional Instructions: Take Pepcid 20 mg twice daily for the next 14 days Follow-up with your primary care physician this week for further management of your abdominal pain Clear liquid diet for the next 12 to 24 hours, advance to brat diet (banana, rice, applesauce and toast) then advance as tolerated avoiding, alcohol, nicotine,caffeine, or spicy foods Return to the emergency department for increased abdominal pain, fever not controlled with Tylenol and/or ibuprofen, or inability to keep by mouth fluids down Scripts Ondansetron Hcl (ZOFRAN) 4 Mg Tablet 4 MG PO TID PRN PRN for NAUSEA, #14 TAB Prov: RAGHAVENDRA BORGES [employer]FORE [employer]CHOOL 08/27/21 Famotidine (PEPCID) 20 Mg Tablet 20 MG PO BID for dyspepsia for 7 Days, #14 TAB Prov: RAGHAVENDRA BORGES [employer]FORE [employer] 08/27/21 RAGHAVENDRA BORGES APRN Aug 27, 2021 12:38
[2021-08-27] MEDS ORDERED: IOHEXOL 300 MG/ML 75 ML VIAL. IV ONE (12:45)
[2021-08-27] MEDS ORDERED: IV NORMAL SALINE 1,000ML 1,000 ML IV ONE (12:45)
[2021-08-27] MEDS ORDERED: CONTRAST GIVEN. MC PRN (12:45)
[2021-08-27] MEDS ORDERED: ONDANSETRON PF 4 MG/2 ML VIAL. IVP ONE (12:45)
[2021-08-27 13:11] LABS: BASO % 1 % (0-3); EOS # 0.3 x10^3/uL (0.0-0.7); EOS % 3 % (0-3); HEMATOCRIT 45.6 % (39.0-53.0); HEMOGLOBIN 15.3 g/dL (13.0-17.5); LYMPH # 2.4 x10^3/uL (1.0-4.8); LYMPH % 32 % (24-48); MEAN CORPUSCULAR HEMOGLOBIN 28 pg (25-35); MEAN CORPUSCULAR HGB CONC 34 g/dL (31-37); MEAN CORPUSCULAR VOLUME 83 fL (79-100); MONO # 0.7 x10^3/uL (0.0-1.1); MONO % 10 % (0-9); NEUT # 4.2 x10^3uL (1.8-7.7); NEUT % 55 % (31-73); PLATELET COUNT 321 x10^3/uL (140-400); RED CELL DISTRIBUTION WIDTH 13.8 % (11.5-14.5); WHITE BLOOD COUNT 7.6 x10^3/uL (4.0-11.0)
--- NOTE | 2021-08-27 13:15 | RAD ---
Examination: CT of the abdomen pelvis with IV contrast HISTORY: History of epigastric pain COMPARISON: 10 31 cm TECHNIQUE: Axial CT images of the abdomen and pelvis was performed with IV contrast. Coronal and sagi ttal reformats were performed. Exposure: One or more of the following individualized dose reduction techniques were utilized for thi s examination: 1. Automated exposure control 2. Adjustment of the mA and/or kV according to patient size 3. Use of iterative reconstruction technique FINDINGS: The bibasilar lungs are clear. No evidence of free air identified in the abdomen The liver, spleen, adrenals grossly appears unremarkable. The gallbladder is mildly distended. The st omach is mildly distended with visualized pancreas grossly appears unremarkable The small bowel is nondilated. There is mild thickened appearance of the wall of the transverse colon and sigmoid colon with minimal surrounding fat stranding. Feces and gas throughout the colon. Urinar y bladder is mildly distended Bilateral kidneys enhance symmetrically. Punctate 2 mm calculus right kidney. No evidence of lytic [place] destructive lesion. IMPRESSION: 1. Mild thickened appearance of the wall of the transverse colon, descending colon and sigmoid colon with minimal surrounding fat stranding likely mild colitis. 2. Punctate 2 mm calculus right kidney. Electronically signed by: Alexander Shah MD (08/27/2021 1:13 PM) [id number]
[2021-08-27 13:26] LABS: CALCIUM 9.4 mg/dL (8.5-10.1); CREATININE 1.1 mg/dL (0.7-1.3); GFR 79.7; POTASSIUM 4.1 mmol/L (3.5-5.1)
[2021-08-27 13:33] LABS: ALBUMIN 4.3 g/dL (3.4-5.0); ALBUMIN/GLOBULIN RATIO 1.3 (1.0-1.7); TOTAL BILIRUBIN 0.9 mg/dL (0.2-1.0); TOTAL PROTEIN 7.5 g/dL (6.4-8.2)
[2021-08-27] MEDS ORDERED: LIDO:MAALOX 1:1 20 ML SINGLE DOSE. PO ONE (14:00)
[2021-08-27] MEDS ORDERED: FAMO-63 PO ×2 (14:34→15:07)
[2021-08-27] MEDS ORDERED: ONDA4TAB7 PO ×2 (14:34→15:07)
[2021-08-27 14:56] LABS: BACTERIA,URINE 0 /HPF (0-FEW); BILIRUBIN,URINE NEG (NEG); CLARITY,URINE CLEAR; COLOR,URINE YELLOW; GLUCOSE,URINE NEG (NEG); NITRITE,URINE NEG (NEG); RBC,URINE 0 /HPF (0-2); UROBILINOGEN,URINE 0.2 mg/dL (0.2 mg/dL); WBC,URINE 0 /HPF (0-4)
== END 2021-08-27 15:14 | disposition home or self-care (01) ==
LOC: ER 12:12
DX: R10.13 Epigastric pain (principal); R11.2 Nausea with vomiting, unspecified; F31.9 Bipolar disorder, unspecified; E03.9 Hypothyroidism, unspecified; Z90.89 Acquired absence of other organs
CPT/HCPCS: 36415; 74177; 80053; 81001; 83690; 85025; 96361; 96374; 96375; 99285; J2405; J3010; J7030; Q9967

== ENCOUNTER 2021-10-16 08:02 | Emergency (ER) | payer BC, OTHER ==
[~2021-10-16] VITALS: Ht 188 cm; Wt 113.0 kg
[~2021-10-16 08:02] MED LIST changes: +FAMO-63 PO; +ONDA4TAB7 PO
[2021-10-16 08:33] VITALS: BP 141/87
--- NOTE | 2021-10-16 08:40 | RAD ---
EXAM: ABDOMEN ONE VIEW. HISTORY: Constipation. COMPARISON: None. FINDINGS: A frontal view of the abdomen is obtained. There are no distended small bowel loops. There is gas distally. An anastomotic suture line is noted on the right. IMPRESSION: 1. No evidence of obstruction. Electronically signed by: Alfie West MD (10/16/2021 8:38 AM) [id number]
--- NOTE | 2021-10-16 08:44 | PHYS DOC ---
Past History Past Medical History: Bipolar, Hypothyroid, Other Additional Past Medical Histor: ADHD Past Surgical History: Appendectomy, Tonsillectomy, Other Additional Past Surgical Histo: THYROIDECTOMY Smoking: Non-smoker Alcohol Use: Occasionally Drug Use: None General Adult EDM: Chief Complaint: CONSTIPATION HPI: HPI: 26-year-old male presents with left-sided abdominal pain. The pain started about a days ago. He describes it as a fullness or cramping sensation. He tells me that he thinks he might be constipated. He has not been able to have a good bowel movement for a couple of days. He has had a couple small nirav. He has history of appendectomy. He denies fever or chills. He has no other complaints this time. Review of Systems: Review of Systems: Constitutional: Denies fever or chills Eyes: Denies change in visual acuity HENT: Denies nasal congestion or sore throat Respiratory: Denies cough or shortness of breath Cardiovascular: Denies chest pain or edema GI: Left-sided abdominal pain, nausea. Denies vomiting, bloody stools or diarrhea : Denies dysuria Musculoskeletal: Denies back pain or joint pain Integument: Denies rash Neurologic: Denies headache, focal weakness or sensory changes Endocrine: Denies polyuria or polydipsia Lymphatic: Denies swollen glands Psychiatric: Denies depression or anxiety Allergies: Allergies: Allergies Coded Allergies Type Severity Reaction Last Updated Verified No Known Drug Allergies 07/24/16 No Physical Exam: PE: Constitutional: Well developed, well nourished, obese, no acute distress, non- toxic appearance. [] HENT: Normocephalic, atraumatic, bilateral external ears normal, oropharynx moist, no oral exudates, nose normal. [] Eyes: PERRLA, EOMI, conjunctiva normal, no discharge. [] Neck: Normal range of motion, no tenderness, supple, no stridor. [] Cardiovascular: Heart rate regular rhythm, no murmur [] Lungs & Thorax: Bilateral breath sounds clear to auscultation [] Abdomen: Bowel sounds normal, soft, left-sided tenderness, no masses, no pulsatile masses. [] Skin: Warm, dry, no erythema, no rash. [] Back: No tenderness, no CVA tenderness. [] Extremities: No tenderness, no cyanosis, no clubbing, ROM intact, no edema. [] Neurologic: Alert and oriented X 3, normal motor function, normal sensory function, no focal deficits noted. [] Psychologic: Affect normal, judgement normal, mood anxious. [] Current Patient Data: Vital Signs: Vital Signs Date Time Temp Pulse Resp B/P (MAP) Pulse Ox O2 Delivery O2 Flow Rate FiO2 10/16/21 08:33 98.1 95 16 141/87 (105) 97 EKG: EKG: [] Radiology/Procedures: Radiology/Procedures: [] Impressions: EXAM: ABDOMEN ONE VIEW. HISTORY: Constipation. COMPARISON: None. FINDINGS: A frontal view of the abdomen is obtained. There are no distended small bowel loops. There is gas distally. An anastomotic suture line is noted on the right. IMPRESSION: 1. No evidence of obstruction. Electronically signed by: Alfie West MD (10/16/2021 8:38 AM) [id number] DICTATED AND SIGNED BY: FLAKITA WEST MD DATE: 10/16/21 0834 CC: ERIN ELIAS DO; MARYCRUZ HOBSON SPECIALIST PHYSICIAN-C ~MTH0 0 Heart Score: C/O Chest Pain: N/A Risk Factors: Risk Factors: DM, Current or recent (<one month) smoker, HTN, HLP, family history of CAD, obesity. Risk Scores: Score 0 - 3: 2.5% MACE over next 6 weeks - Discharge Home Score 4 - 6: 20.3% MACE over next 6 weeks - Admit for Clinical Observation Score 7 - 10: 72.7% MACE over next 6 weeks - Early Invasive Strategies Course & Med Decision Making: Course & Med Decision Making Pertinent Labs and Imaging studies reviewed. (See chart for details) The patient does not have evidence of obstruction. He does have some stool retention and gas. I recommended magnesium citrate for bowel cleanout. He is stable for discharge at this time. [] Dragon Disclaimer: Dragchris Disclaimer: This electronic medical record was generated, in whole or in part, using a voice recognition dictation system. Departure Departure: Impression: Primary Impression: Constipation Disposition: HOME / SELF CARE / HOMELESS Condition: STABLE Referrals: MARYCRUZ HOBSON NP-C (PCP) Patient Instructions: Constipation, Adult, [id number] ERIN ELIAS DO Oct 16, 2021 08:44
[2021-10-16] MEDS ORDERED: ONDANSETRON ODT 4 MG TAB.RAPDIS PO ONE (08:45)
== END 2021-10-16 08:57 | disposition home or self-care (01) ==
LOC: ER 08:02
DX: K59.00 Constipation, unspecified (principal); E03.9 Hypothyroidism, unspecified; F31.9 Bipolar disorder, unspecified; Z90.89 Acquired absence of other organs
CPT/HCPCS: 74018; 99283; Q0162

== ENCOUNTER 2021-10-17 12:39 | Emergency (ER) | payer OTHER ==
[~2021-10-17] VITALS: Ht 188 cm; Wt 117.0 kg
--- NOTE | 2021-10-17 13:14 | PHYS DOC ---
Past History Past Medical History: Bipolar, Hypothyroid, Other Additional Past Medical Histor: ADHD (PANCHITO DAWSON APRN) Past Surgical History: Appendectomy, Tonsillectomy, Other Additional Past Surgical Histo: THYROIDECTOMY (PANCHITO DAWSON APRN) Smoking: Non-smoker Alcohol Use: Occasionally Drug Use: None (PANCHITO DAWSON APRN) Adult General Chief Complaint Chief Complaint: CHEST WALL PAIN HPI HPI Patient is a 26-year-old male presents emergency department complaining of chest pressure for the past 2 weeks. Patient denies radiation of chest pressure. Patient reports it feels as if somebody is sitting on his chest. Patient denies nausea, vomiting, diarrhea, denies radiation of chest pressure, denies syncopal or near syncopal episodes, denies chest pain or chest palpitations, denies nasal or chest congestion. Patient reports his cigarette smoker, denies illicit drug use or alcohol use, patient denies other physical complaints or physical concerns. Patient denies a family history of sudden cardiac or from cardiac problems at early ages. (PANCHITO DAWSON APRN) Review of Systems Review of Systems 14 body systems of review of systems have been reviewed. See HPI for pertinent positives and negative responses, otherwise all other systems are negative, nonpertinent or noncontributory. Constitutional: Negative except as outlined in HPI above. Skin: Negative except as outlined in HPI above. Eyes: Negative except as outlined in HPI above. HENT: Negative except as outlined in HPI above. Respiratory: Negative except as outlined in HPI above. Cardiovascular: Negative except as outlined in HPI above. GI: Negative except as outlined in HPI above. : Negative except as outlined in HPI above. Musculoskeletal: Negative except as outlined in HPI above. Integument: Negative except as outlined in HPI above. Neurologic: Negative except as outlined in HPI above. Endocrine: Negative except as outlined in HPI above. Lymphatic: Negative except as outlined in HPI above. Psychiatric: Negative except as outlined in HPI above. (PANCHITO DAWSON APRN) Current Medications Current Medications Current Medications Medications (Trade) Dose Ordered Sig/Aubrie Start Time Stop Time Status Last Admin Dose Admin Ketorolac Tromethamine (Toradol 30mg Vial) 30 mg 1X ONCE 10/17/21 13:15 10/17/21 13:16 UNV Sodium Chloride 1,000 ml @ 1,000 mls/hr 1X ONCE 10/17/21 13:15 10/17/21 14:14 UNV (PANCHITO DAWSON APRN) Allergies Allergies Allergies Coded Allergies Type Severity Reaction Last Updated Verified No Known Drug Allergies 07/24/16 No (PANCHITO DAWSON APRN) Physical Exam Physical Exam Constitutional: Well developed, well nourished, no acute distress, non-toxic appearance. 18-year-old male in no apparent distress. HENT: Normocephalic, atraumatic. Eyes: Conjunctiva normal, no discharge. Neck: Normal range of motion, no stridor. Cardiovascular: No cyanosis appreciated, distal cap refill less than 2 seconds. Heart sounds S1-S2 auscultation. Regular rate and rhythm. Lungs & Thorax: Patient is in no respiratory distress, no audible adventitious lung sounds appreciated. Lung sounds clear to auscultation all lung beltran. Normal work of breathing. Abdomen: Nontender, no abnormalities noted. Skin: Warm, dry, no erythema, no rash. Back: No tenderness, no deformities. Extremities: No tenderness, no cyanosis, no clubbing, ROM intact, no edema. Neurologic: Alert and oriented X 3, normal motor function, normal sensory function, no focal deficits noted. Psychologic: Affect normal, judgement normal, mood normal. (PANCHITO DAWSON APRN) Current Patient Data Vital Signs Vital Signs Date Time Temp Pulse Resp B/P (MAP) Pulse Ox O2 Delivery O2 Flow Rate FiO2 10/17/21 12:51 98.2 98 18 131/72 (91) 97 Room Air Lab Results Laboratory Tests Test 10/17/21 13:22 White Blood Count 6.4 x10^3/uL Red Blood Count 5.14 x10^6/uL Hemoglobin 14.5 g/dL Hematocrit 44.0 % Mean Corpuscular Volume 86 fL Mean Corpuscular Hemoglobin 28 pg Mean Corpuscular Hemoglobin Concent 33 g/dL Red Cell Distribution Width 14.9 % Platelet Count 271 x10^3/uL Neutrophils (%) (Auto) 58 % Lymphocytes (%) (Auto) 30 % Monocytes (%) (Auto) 8 % Eosinophils (%) (Auto) 4 % Basophils (%) (Auto) 1 % Neutrophils # (Auto) 3.7 x10^3uL Lymphocytes # (Auto) 1.9 x10^3/uL Monocytes # (Auto) 0.5 x10^3/uL Eosinophils # (Auto) 0.3 x10^3/uL Basophils # (Auto) 0.0 x10^3/uL Sodium Level 140 mmol/L Potassium Level 4.2 mmol/L Chloride Level 103 mmol/L Carbon Dioxide Level 30 mmol/L Anion Gap 7 Blood Urea Nitrogen 16 mg/dL Creatinine 1.1 mg/dL Estimated GFR (Cockcroft-Gault) 79.7 BUN/Creatinine Ratio 15 Glucose Level 110 mg/dL Calcium Level 8.9 mg/dL Phosphorus Level 3.7 mg/dL Magnesium Level 2.4 mg/dL Total Bilirubin 0.3 mg/dL Aspartate Amino Transf (AST/SGOT) 32 U/L Alanine Aminotransferase (ALT/SGPT) 71 U/L Alkaline Phosphatase 60 U/L Troponin I High Sensitivity < 4 ng/L [id number] Natriuretic Peptide < 5 pg/mL Total Protein 6.8 g/dL Albumin 4.2 g/dL Albumin/Globulin Ratio 1.6 Lipase 86 U/L Influenza Type A (Rapid) Negative Influenza Type B (Rapid) Negative SARS-CoV-2 Antigen (Rapid) Negative Current Medications Medications (Trade) Dose Ordered Sig/Aubrie Route PRN Reason Start Time Stop Time Status Last Admin Dose Admin Sodium Chloride 1,000 ml @ 1,000 mls/hr 1X ONCE IV 10/17/21 13:15 10/17/21 14:14 DC 10/17/21 13:15 Ketorolac Tromethamine (Toradol 30mg Vial) 30 mg 1X ONCE IVP 10/17/21 13:15 10/17/21 13:53 DC 10/17/21 13:15 (PANCHITO DAWSON APRN) EKG EKG EKG performed at 1334 by ED nursing staff shows a normal sinus rhythm without other ectopy, heart rate 94 bpm, OR 1.144, QTc interval 0.453, no acute STEMI, no ACS, no acute ischemia appreciated, EKG interpreted by ED attending physician Dr. Amador. (PANCHITO DAWSON APRN) Radiology/Procedures Radiology/Procedures REASON: Chest pressure PROCEDURE: CHEST AP ONLY Single view chest dated 10/17/2021 1:35 PM: COMPARISON: None Clinical Indication: Chest pressure. Findings: Single upright portable exam of the chest was performed. Heart size and mediastinal contours are within normal limits. Lungs are clear. No consolidation or pleural effusion. No pneumothorax. IMPRESSION: No acute radiographic abnormality. Electronically signed by: Panchito Chun MD (10/17/2021 1:35 PM) [id number] (PANCHITO DAWSON APRN) Heart Score C/O Chest Pain: Yes HEART Score for Chest Pain: HEART Score for Chest Pain Response (Comments) Value History Slighlty/Non-Suspicious 0 ECG Normal 0 Age < 45 0 Risk Factors 1 or 2 Risk Factors 1 Troponin < Normal Limit 0 Total 1 Risk Factors: Risk Factors: DM, Current or recent (<one month) smoker, HTN, HLP, family history of CAD, obesity. Risk Scores: Risk Factors: DM, Current or recent (<one month) smoker, HTN, HLP, family history of CAD, obesity. (PANCHITO DAWSON APRN) Course & Med Decision Making Course & Med Decision Making Pertinent Labs and Imaging studies reviewed. (See chart for details) 26-year-old male, vital signs reviewed, resents emerged from concerning chest pressure for the past 2 weeks. Physical examination is unremarkable. Will order EKG, chest x-ray, high-sensitivity troponin I, NT proBNP, CBC, CMP, lipase. Patient is concerned he may have the COVID-19 virus, will order rapid flu and rapid Covid testing. Patient's chest x-ray is unremarkable, EKG unremarkable, all labs unremarkable, the patient's Covid and flu testing are negative. Discussed findings with patient, patient states he feels much better knowing he does not have a Covid virus and wishes to go home now, the patient's HEART score is nonconcerning. Discussed with patient strict follow-up with primary care soon for ongoing symptoms, return ER precautions and concerns were reviewed, patient gave verbal understanding of and is amenable to ED discharge planning. Discussed with the patient all findings and diagnostic testing as well as the need to follow-up with their primary care provider for further evaluation and treatment or return to the ED if any new or worsening symptoms. Strict return precautions were also discussed at length, the patient voiced understanding and agreement with the discharge planning. The patient was nontoxic in appearance, in no apparent distress, and hemodynamically stable at the time of disposition. (PANCHITO DAWSON APRN) Course & Med Decision Making I was the Attending physician on the above date of service of this patient. This patient was evaluated, examined, treated, and dispositioned from the emergency department by the mid-level practitioner. Although I was working at the time , no assistance was requested. Electronically signed, Rosalio Amador DO (ROSALIO AMADOR DO) Leyda Disclaimer Leyda Disclaimer This electronic medical record was generated, in whole or in part, using a voice recognition dictation system. (PANCHITO DAWSON APRN) Departure Departure: Impression: Primary Impression: Viral syndrome Additional Impression: Chest pressure Disposition: HOME / SELF CARE / HOMELESS Condition: GOOD Referrals: [facility] (PCP) Patient Instructions: Chest Pain (Nonspecific), Viral Syndrome Additional Instructions: You were seen today in the emergency department for chest pressure, cough, generalized body aches. Your chest x-ray did not show any concerning findings, your EKG was within normal limits and did not show any concerning findings with your heart. Your cardiac enzymes along with other lab work did not show any concerning findings that would warrant admission to the hospital, immediate intervention by a medical record administrator, or administration of antibiotics or other medications. Your symptoms seem to be viral in nature, as we discussed please continue to use Tylenol or Motrin for ongoing aches and pains, stay well- hydrated, follow-up with your primary care physician soon for ongoing symptoms. Thank you for visiting our Emergency Department. It was a pleasure taking care of you today in the emergency department and we appreciate you trusting us with your care. If any additional problems come up don't hesitate to return to visit us. Please follow up with your primary care provider so they can plan additional care if needed and know about the problem that you had. If symptoms worsen come back to the Emergency Department. Any concerning symptoms that start such as chest pain, shortness of air, weakness or numbness on one side of the body, running high fevers or any other concerning symptoms return to the ER. EMERGENCY DEPARTMENT GENERAL DISCHARGE INSTRUCTIONS Thank you for coming to [facility] (ED) today and trusting us with you care. We trust that you had a positivie experience in our Emergency Department. If you wish to speak to the department management, you may call the director at [phone]. YOUR FOLLOW UP INSTRUCTIONS ARE FOLLOWS: 1. Do you have a private Doctor? If you do not have a private doctor, please ask for a resource list of physicians or clinics that may be able to assist you with follow up care. 2. The Emergency Physician has interpreted your x-rays. The X-Ray specialist will also review them. If there is a change in the findings, you will be notified in 48 hours when at all possible. 3. A lab test or culture has been done, your results will be reviewed and you will be notified if you need a change in treatment. ADDITIONAL INSTRUCTIONS AND INFORMATION: 1. Your care today has been supervised by a physician who is specially trained in emergency care. Many problems require more than one evaluation for a complete diagnosis and treatment. We recommend that you schedule your follow up appointment as recommended to ensure complete treatment of you illness or injury. If you are unable to obtain follow up care and continue to have a problem, or if your condition worsens, we recommend that you return to the ED. 2. We are not able to safely determine your condition over the phone nor are we able to give sound medical advice over the phone. For these safety reasons, if you call for medical advice we will ask you to come to the ED for further evaluation. 3. If you have any questions regarding these discharge instructions please call the ED at [phone]. SAFETY INFORMATION: In the interest of safety, wellness, and injury prevention; we encourage you to wear your sealbelt, if you smoke; quite smoking, and we encourage family to use a protective helmet for bicycling and other sporting events that present an increased risk for head injury. IF YOUR SYMPTOMS WORSEN OR NEW SYMPTOMS DEVELOP, OR YOU HAVE CONCERNS ABOUT YOUR CONDITION; OR IF YOUR CONDITION WORSENS WHILE YOU ARE WAITING FOR YOUR FOLLOW UP APPOINTMENT; EITHER CONTACT YOUR PRIMARY CARE DOCTOR, THE PHYSICIAN WHOSE NAME AND NUMBER YOU WERE GIVEN, OR RETURN TO THE ED IMMEDIATELY. Problem Qualifiers PANCHITO DAWSON APRN Oct 17, 2021 13:14 ROSALIO AMADOR DO Oct 19, 2021 08:03
[2021-10-17] MEDS ORDERED: IV NORMAL SALINE 1,000ML 1,000 ML IV ONE (13:15)
[2021-10-17] MEDS ORDERED: KETOROLAC 30 MG/ML VIAL. IVP ONE (13:15)
[2021-10-17 13:37] LABS: BASO % 1 % (0-3); EOS # 0.3 x10^3/uL (0.0-0.7); EOS % 4 % (0-3); HEMOGLOBIN 14.5 g/dL (13.0-17.5); LYMPH # 1.9 x10^3/uL (1.0-4.8); LYMPH % 30 % (24-48); MEAN CORPUSCULAR HEMOGLOBIN 28 pg (25-35); MEAN CORPUSCULAR HGB CONC 33 g/dL (31-37); MEAN CORPUSCULAR VOLUME 86 fL (79-100); MONO # 0.5 x10^3/uL (0.0-1.1); MONO % 8 % (0-9); NEUT # 3.7 x10^3uL (1.8-7.7); NEUT % 58 % (31-73); PLATELET COUNT 271 x10^3/uL (140-400); RED BLOOD COUNT 5.14 x10^6/uL (4.30-5.70); RED CELL DISTRIBUTION WIDTH 14.9 % (11.5-14.5); WHITE BLOOD COUNT 6.4 x10^3/uL (4.0-11.0)
--- NOTE | 2021-10-17 13:37 | RAD ---
Single view chest dated 10/17/2021 1:35 PM: COMPARISON: None Clinical Indication: Chest pressure. Findings: Single upright portable exam of the chest was performed. Heart size and mediastinal contours are with in normal limits. Lungs are clear. No consolidation or pleural effusion. No pneumothorax. IMPRESSION: No acute radiographic abnormality. Electronically signed by: Panchito Chun MD (10/17/2021 1:35 PM) [id number]
--- NOTE | 2021-10-17 13:45 | EKG ---
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
[2021-10-17 13:48] LABS: ANION GAP 7 (6-14); BLOOD UREA NITROGEN 16 mg/dL (8-26); BUN/CREATININE RATIO 15 (6-20); CALCIUM 8.9 mg/dL (8.5-10.1); CARBON DIOXIDE 30 mmol/L (21-32); CHLORIDE 103 mmol/L (98-107); CREATININE 1.1 mg/dL (0.7-1.3); GFR 79.7; GLUCOSE 110 mg/dL (70-99); POTASSIUM 4.2 mmol/L (3.5-5.1); SODIUM 140 mmol/L (136-145)
[2021-10-17 13:54] LABS: INFLUENZA A PATIENT NEGATIVE (NEGATIVE); INFLUENZA B PATIENT NEGATIVE (NEGATIVE)
[2021-10-17 14:02] LABS: ALBUMIN 4.2 g/dL (3.4-5.0); ALBUMIN/GLOBULIN RATIO 1.6 (1.0-1.7); ALK PHOS 60 U/L (46-116); ALT (SGPT) 71 U/L (16-63); AST (SGOT) 32 U/L (15-37); LIPASE 86 U/L (73-393); MAGNESIUM 2.4 mg/dL (1.8-2.4); PHOSPHORUS 3.7 mg/dL (2.6-4.7); TOTAL BILIRUBIN 0.3 mg/dL (0.2-1.0); TOTAL PROTEIN 6.8 g/dL (6.4-8.2)
[2021-10-17 14:43] VITALS: BP 121/70
== END 2021-10-17 14:44 | disposition home or self-care (01) ==
LOC: ER 12:41
DX: B34.9 Viral infection, unspecified (principal); R07.89 Other chest pain; F31.9 Bipolar disorder, unspecified; E03.9 Hypothyroidism, unspecified; Z20.822 Contact with and (suspected) exposure to COVID-19
CPT/HCPCS: 36415; 71045; 80053; 83690; 83735; 83880; 84100; 84484; 85025; 87428; 93005; 96361; 96374; 99285; J1885; J7030

== ENCOUNTER → 2021-10-23 | Outpatient (CLI) | payer OTHER ==
[2021-10-17 14:43] VITALS: BP 121/70
--- NOTE | 2021-10-23 08:22 | RAD ---
INDICATION: Reason: EPIGASTRIC ABD PAIN, BLOATING / Spl. Instructions: / History: COMPARISON: CT from August 27, 2021 TECHNIQUE: Grayscale and color ultrasound images obtained through the abdomen. FINDINGS: Pancreas: Largely obscured by bowel gas. Liver: Mildly echogenic. Gallbladder: Small amount of debris within. The gallbladder is distended. Common Bile Duct: Not dilated. Right Kidney: No hydronephrosis. Aorta/IVC: Limited visualization secondary to bowel gas. IMPRESSION: * There are some internal echoes within the gallbladder which could be from sludge. * Liver is echogenic. Nonspecific but can be seen with fatty infiltration. Electronically signed by: Benjamin Nice MD (10/23/2021 8:20 AM) [id number]
== END ==
LOC: US 07:45
PROVIDERS: ATTEND Internal Medicine Gastroenterology
DX: R10.13 Epigastric pain (principal); R14.0 Abdominal distension (gaseous)
CPT/HCPCS: 76705

== ENCOUNTER → 2021-11-02 | Outpatient (CLI) | payer OTHER ==
[2021-10-17 14:43] VITALS: BP 121/70
--- NOTE | 2021-11-02 12:04 | RAD ---
HEPATOBILIARY SCAN WITH EJECTION FRACTION 11/02/2021 11:59 AM History: Abdominal pain. Symptoms x8 months. Procedure: Serial static images are obtained of the liver and biliary system in the frontal projectio n following IV administration of 5 mCi of Technetium 99m Choletec. After filling of the gallbladder were a CCK analog was infused and dynamic imaging continued over this period. The gallbladder ejec tion fraction was calculated. Findings: There is prompt hepatic clearance of tracer from the blood pool. There is homogeneous distr ibution throughout the liver. The gallbladder ejection fraction measures 47% (normal gallbladder EF is 35% or greater). IMPRESSION: 1. The cystic duct and common bile duct are patent. Negative for acute cholecystitis. 2. The gallbladder ejection fraction is normal Electronically signed by: Jose Martinez MD (11/02/2021 12:01 PM) [id number]
== END ==
LOC: NM 08:59
PROVIDERS: ATTEND Internal Medicine Gastroenterology
DX: R14.0 Abdominal distension (gaseous) (principal); R10.13 Epigastric pain
CPT/HCPCS: 78227; A9537